=== PATIENT | male | born 1975 | race Asian ===

== ENCOUNTER 2020-04-29 03:57 | Emergency (ER) | payer OTHER ==
[2020-04-29] MEDS ORDERED: ZESTRIL20 MG PO (04:10)
== END 2020-04-29 04:19 ==
LOC: ED 03:57
DX: Z02.89 Encounter for other administrative examinations (principal)

== ENCOUNTER 2020-04-29 03:57 | Emergency (ER) | payer SELFPAY ==
[~2020-04-29] VITALS: Ht 167.6 cm; Wt 62.6 kg
[2020-04-29 04:03] VITALS: Ht 167.6 cm; Wt 62.6 kg
[2020-04-29] MEDS ORDERED: ZESTRIL20 MG PO (04:10)
[2020-04-29 04:19] VITALS: BP 155/111
== END 2020-04-29 04:19 ==
LOC: ED 03:57
DX: I10 Essential (primary) hypertension (principal)